=== PATIENT | male | born 1995 | race Caucasian/White ===

== ENCOUNTER 2017-07-08 17:15 | Emergency (ER) | payer SELFPAY ==
[2017-07-08 17:27] VITALS: BP 125/75; PULSE 80; RESP 18; TEMP 36.7; O2SAT 98; BMI 27.7
--- NOTE | 2017-07-08 17:44 | XR_ITS ---
XR hand RT min 3V HISTORY: Posttraumatic pain, laceration ITS.REASON: CUT HAND WITH CHAINSAW ORDERING PHYSICIAN: Diamond Simons MD PATIENT AGE: 21 years COMPARISON: None FINDINGS: There is an oblique fracture involving the distal aspect of the distal phalanx of the fourth digit. Fracture fragments are by 1 to 2 mm. There is some minimal comminution of the fracture along the ulnar aspect. No obvious radio opaque foreign body. IMPRESSION: Mildly displaced oblique fracture distal phalanx fourth digit
--- NOTE | 2017-07-08 18:20 | HMH.EDWNDL ---
ED Disposition Clinical Impression: Hand laceration Disposition: Home, Self-Care Condition on Discharge: Fair Instructions: DI for Laceration Repair Additional Instructions: 1- rest. 2- elevate. 3- daily neosprin. 4- needs thumb spicca splint . 5- cold compresses. 5- 2 days wound recehck. 6- stitche removal in 2 weeks . 7- bactrim DS po bid. Prescriptions: Sulfamethoxazole/Trimethoprim [Bactrim DS tablet] 1 each PO BID #20 tablet Referrals: Provider,MD Erasmo [Primary Care Provider] - Tylor Olivera MD [Staff Physician] - - Critical Care Critical Care Time: No Attestation: On 07/08/17, the high probability of a clinically significant, sudden or life threatening deterioration of the following system(s) required my full and direct attention, intervention and personal management. The time I documented below is in addition to time spent performing reported procedures but includes the following listed in this critical care notation. Medical Decision Making - Medical Records Medical records reviewed: Yes: I reviewed the patient's medical records. Vital Signs: 07/08/17 17:27 Temperature 98.0 F Temperature Source Oral Pulse Rate [Right Brachial] 80 Respiratory Rate 18 Blood Pressure [Right Arm] 125/75 Blood Pressure Mean [Right Arm] 91 Blood Pressure Source [Right Arm] Automatic Cuff Blood Pressure Position [Right Arm] Sitting 02 Sat by Pulse Oximetry 98 Oxygen Delivery Method Room Air Orders (Tests/Meds): ORDERS Category Date Time Status XR hand RT min 3V Routine Exams 07/08/17 17:44 Taken - Radiology Data #1 Image Reviewed: Yes I reviewed the patient's radiology image Preliminary Findings: Normal/NAD - Jerry Inquiry Pt receiving controlled substance: No Jerry was queried for this patient: No Wound/Laceration HPI - General Chief Complaint: Wound/Laceration Stated Complaint: AO 07/08/17 Rt Hand vs Chain Saw, Lac Mode of Arrival: Ambulatory Limitations: No Limitations Description of Symptoms (Recalled from ER Triage Doc. by RN): CUT RIGHT HAND WITH CHAINSAW - History of Present Illness HPI narrative: 21 years old white male was using a chainsaw to cut wood when he had a knot with a result of 4 centimeter laceration at the base of the right thumb, no loss of movement no loss of incision. Onset (ago): hour(s) Extremity Location: Right: hand (4 cm laceration the skin and subcutaneous tissue.) Place: home Patient tetanus UTD: Yes Context: accidental Associated symptoms: none - Related Data Previous Rx's Medication Instructions Recorded Sulfamethoxazole/Trimethoprim 1 each PO BID #20 tablet 07/08/17 [Bactrim DS tablet] Allergies Allergy/AdvReac Type Severity Reaction Status Date / Time No Known Allergies Allergy Unverified 06/03/17 15:29 [facility] History I have reviewed the patient's past medical history: Yes Medical History: Denies:: Cancer, Diabetes Mellitus Type 1, Diabetes Mellitus Type 2, MRSA Amputation: No - *Social History Educational Level: Completed High School Smoking Status: Unknown if ever smoked Alcohol Intake: never - Psychiatric History Expresses thoughts of harming self/others: None Suicide Plan Description: No Plan ROS Obtained: Yes All systems reviewed & no additional complaints Physical Exam - General General appearance: alert, in no apparent distress - Head Head exam: atraumatic, normocephalic, normal inspection - Eye Eye exam: Present: normal appearance, PERRL, EOMI - ENT ENT exam: Present: normal exam, normal oropharynx, mucous membranes moist, TM's normal bilaterally, normal external ear exam - Neck Neck exam: Present: normal inspection, full ROM, trachea midline. Absent: meningismus, lymphadenopathy - Chest Chest inspection: Present: normal inspection, symmetric chest wall rise. Absent: tenderness - Respiratory Respiratory exam: Present: normal lung sounds bilaterally. A
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
[2017-07-08 19:29] VITALS: BP 130/78; PULSE 60; RESP 16; TEMP 37.1; O2SAT 98
== END 2017-07-08 19:34 | disposition home or self-care (01) ==
PROVIDERS: Emergency Provider Emergency Medicine; Family Provider Internal Medicine Adolescent Medicine
DX: S61.011A Laceration without foreign body of right thumb without damage to nail, initial encounter (principal); W29.3XXA Contact with powered garden and outdoor hand tools and machinery, initial encounter; Y93.89 Activity, other specified; Y92.009 Unspecified place in unspecified non-institutional (private) residence as the place of occurrence of the external cause
CPT/HCPCS: 12002; 73130; 99282

== ENCOUNTER 2017-07-21 13:34 | Emergency (ER) | payer SELFPAY ==
[2017-07-21 13:59] VITALS: BP 121/75; PULSE 85; RESP 18; TEMP 36.7; O2SAT 98
== END 2017-07-21 13:58 | disposition home or self-care (01) ==
PROVIDERS: Emergency Provider Emergency Medicine; Family Provider Internal Medicine Adolescent Medicine
DX: Z48.02 Encounter for removal of sutures; S61.419D Laceration without foreign body of unspecified hand, subsequent encounter
CPT/HCPCS: 99203; 99281

== ENCOUNTER 2019-10-17 14:46 | Emergency (ER) | payer OTHER, SELFPAY ==
[2019-10-17 14:56] VITALS: BP 130/89; PULSE 89; RESP 18; TEMP 36.8; O2SAT 98; BMI 23.7
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
[2019-10-17 15:17] VITALS: BP 132/87; PULSE 78; RESP 16; TEMP 36.8; O2SAT 98
== END 2019-10-17 15:18 ==
PROVIDERS: Emergency Provider Family Medicine
DX: S01.81XA Laceration without foreign body of other part of head, initial encounter (principal); Y04.2XXA Assault by strike against or bumped into by another person, initial encounter; Y92.019 Unspecified place in single-family (private) house as the place of occurrence of the external cause; F12.10 Cannabis abuse, uncomplicated
CPT/HCPCS: 12011; 99283

== ENCOUNTER 2020-11-23 14:54 | Emergency (ER) | payer OTHER, SELFPAY ==
[2020-11-23 15:09] VITALS: BP 112/78; PULSE 78; RESP 17; TEMP 36.8; O2SAT 98; BMI 23.7
[2020-11-23 15:18] VITALS: BP 112/75; PULSE 78; RESP 17; TEMP 36.8; O2SAT 98
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
== END 2020-11-23 16:00 | disposition home or self-care (01) ==
LOC: UTC 16:29
PROVIDERS: Emergency Provider Nurse Practitioner Family
DX: M54.6 Pain in thoracic spine (principal); V40.0XXA Car driver injured in collision with pedestrian or animal in nontraffic accident, initial encounter; Y92.488 Other paved roadways as the place of occurrence of the external cause
CPT/HCPCS: 72072; 99202; G0463

== ENCOUNTER 2022-04-30 22:02 | Emergency (ER) | payer OTHER, SELFPAY ==
[2022-04-30 22:03] VITALS: BMI 23.7
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
[2022-04-30 22:08] VITALS: BP 152/87; PULSE 140; RESP 26; TEMP 36.9; O2SAT 94
--- NOTE | 2022-04-30 22:08 | ECG_ITS ---
APPROVED REPORT Exam: Resting ECG HR:97 bpm ECG Measurements Heart Rate 97 AXES ID 131 P 76 QRSd 89 QRS 85 QT 311 T 53 QTc 365 Conclusion SINUS RHYTHM WITH SINUS ARRHYTHMIA NORMAL ECG UNCONFIRMED REPORT Electronically signed by : Ildefonso Toth MD 05/01/2022 13:15:00
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
[2022-04-30 22:14] LABS: POC Glucose,Bedside 109 (70-110)
[2022-04-30 22:15] LABS: Basophils # 0.2 K/mm3 (0-0.2); Basophils % 0.9 % (0.1-2.0); Eosinophils # 0.2 K/mm3 (0.0-0.4); Hematocrit 46.1 % (42.0-52.0); Lymphocytes # 4.8 K/mm3 (0.7-4.5); Lymphocytes % 29.4 % (10-50); Mean Corpuscular HGB Conc 32.6 g/dL (31.8-35.4); Mean Corpuscular Hemoglobin 29.4 pg (27.0-31.2); Mean Corpuscular Volume 90.1 fl (80-94); Mean Platelet Volume 8.3 fl (7.4-10.4); Monocytes # 0.8 K/mm3 (0.1-1.0); Neutrophils # 10.4 K/mm3 (1.8-7.8); Neutrophils % 63.7 % (37.0-80.0); Platelet Count 355 K/mm3 (142-424); Red Blood Count 5.11 M/mm3 (4.60-6.20); Red Cell Distribution Width 14.2 % (11.5-17.5); White Blood Count 16.3 K/mm3 (4.8-10.8)
[2022-04-30 22:18] LABS: Chloride 101 mmol/L (98-107); Sodium 142 mmol/L (136-145)
[2022-04-30 22:19] LABS: Potassium 3.4 mmoL/L (3.5-5.1)
[2022-04-30 22:21] LABS: Alanine Aminotransferase 30 U/L (12-78); Albumin Level 4.8 g/dl (3.5-5.0); Albumin/Globulin Ratio 1.7 (1.1-1.8); Alkaline Phosphatase 59 U/L (38-126); Anion Gap 19.4 mEq/L (5-15); Aspartate Amino Transferase 32 U/L (17-59); Bilirubin,Total 0.4 mg/dl (0.2-1.3); Blood Urea Nitrogen 13 mg/dl (9-20); Carbon Dioxide 25 mmol/L (22.0-30.0); Creatinine Clearance Estimated 145 mL/min (50-200); Estimated Glomerular Filt Rate 103 ml/min (>60); GFR (African American) 124 ML/MIN (>60); Globulin 2.8 g/dL (1.3-3.2); Total Protein,Serum 7.6 g/dl (6.3-8.2)
[2022-04-30 22:22] LABS: Calcium 9.9 mg/dl (8.4-10.2); Glucose 114 mg/dl (74-100)
[2022-04-30 22:24] LABS: MANUAL DIFFERENTIAL MANUAL DIFFERENTIAL (MANUAL DIFF)
[2022-04-30 22:37] LABS: Eosinophils % 1 % (0-3); Lymphocytes % 35 % (10-50); Monocytes % 1 % (2-9); Neutrophils % 63 % (42-76); Platelet Estimate Normal; RBC Morphology Normal; Total Cells Counted 100
--- NOTE | 2022-04-30 22:54 | PC.NURSE ---
speaking with CECE
[2022-04-30 22:58] VITALS: BP 152/72; PULSE 140; RESP 26; TEMP 36.5; O2SAT 94; BMI 23.8
--- NOTE | 2022-04-30 23:00 | PC.NURSE ---
Dr. Olivera speaking with Dr. Cartagena
--- NOTE | 2022-04-30 23:00 | PC.NURSE ---
speaking with Mitzi at this time
--- NOTE | 2022-04-30 23:07 | PC.NURSE ---
Dr. Olivera speaking with Dr. Kirby
--- NOTE | 2022-04-30 23:10 | PC.NURSE ---
Pt accepted at [facility] by Dr. Kirby
--- NOTE | 2022-04-30 23:22 | PC.NURSE ---
report called to Vangie GOMEZ at ER
[2022-04-30 23:23] LABS: Coronavirus 19, PCR Not Detected (NotDetected); Influenza A, PCR Not Detected (NotDetected); Influenza B, PCR Not Detected (NotDetected)
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
--- NOTE | 2022-04-30 23:27 | PC.NURSE ---
All of pt belongings including: phone, wallet, flash light, pocket knife, household coordinator, necklace, and ear buds, placed in pt belonging bag to be transported with EMS.
[2022-04-30 23:28] VITALS: BMI 23.8
--- NOTE | 2022-04-30 23:29 | PC.NURSE ---
Per pt request friendJose Luis, updated that pt would be transferred to [facility].
[2022-04-30 23:40] VITALS: BP 148/91; PULSE 91; RESP 16; TEMP 37.1; O2SAT 100
== END 2022-05-01 | disposition short-term general hospital (02) ==
PROVIDERS: Emergency Provider Emergency Medicine
DX: S21.331A Puncture wound without foreign body of right front wall of thorax with penetration into thoracic cavity, initial encounter (principal); J94.2 Hemothorax; X99.1XXA Assault by knife, initial encounter; F12.90 Cannabis use, unspecified, uncomplicated; Z72.0 Tobacco use
CPT/HCPCS: 71045; 71275; 74177; 80053; 82962; 85007; 85025; 93005; 96365; 99285; C9803; Q9967; U0003; U0005

== ENCOUNTER 2023-01-08 01:11 | Emergency (ER) | payer OTHER, SELFPAY ==
[2023-01-08 01:15] VITALS: BP 137/85; PULSE 106; RESP 18; TEMP 36.6; O2SAT 97; BMI 23.8
--- NOTE | 2023-01-08 01:19 | HMH.EDGENADL ---
Discharge Plan Disposition Chief Complaint: Medical Clearance Referrals Follow up/Referrals: Tylor Olivera MD [Primary Care Provider] - See instructions Activity Restrictions/Add. Instructions Additional Instructions/Restrictions: Please follow-up with your primary care provider. Please return to the emergency department if you develop any new or worsening symptoms or become concerned for your health. Clinical Impressions Clinical Impression: Medical clearance for incarceration Discharge ED Provider: Dimitris Murray Adult HPI General Chief complaint: Medical Clearance Stated complaint: Medical Clearance Time Seen by Provider: 01/08/23 01:15 Mode of Arrival: Ambulatory Limitations: No Limitations Description of Symptoms (Recalled from ER Triage Doc. by RN): Patient here for medical clearance no complaints at this time. History of Present Illness HPI narrative: 27-year-old male reportedly previously healthy presents for medical clearance for half-way. Reports no current medical conditions, reports no current complaints. Patient presents to the ED due to reported recent drug use. Is alert and oriented and not intoxicated nor in withdrawal at this time. Related Data Allergies Allergy/AdvReac Type Severity Reaction Status Date / Time No Known Allergies Allergy Verified 05/06/22 13:06 [facility] Disclaimer: The information contained in this section may have been updated after the patient was seen, as this information can be updated by other users. Social History Smoking Status: Current every day smoker tobacco type: cigarettes packs per day: 1 second hand exposure: No alcohol intake: never substance use type: marijuana current occupational status: other Travel in the last 8 weeks: None ROS Obtained: Yes All systems reviewed & no additional complaints except as documented Physical Exam General General appearance: alert and in no apparent distress Head Head exam: atraumatic and normocephalic Eye Eye exam: Present normal appearance, PERRL and EOMI ENT ENT exam: Present normal oropharynx and normal external ear exam Neck Neck exam: Present normal inspection and full ROM Chest Chest inspection: Present normal inspection and symmetric chest wall rise; Absent tenderness Respiratory Respiratory exam: Present normal lung sounds bilaterally; Absent respiratory distress Cardiovascular Cardiovascular exam: Present regular rate and normal rhythm Abdominal Exam Abdominal exam: Present soft; Absent distention, tenderness or guarding Extremities Exam Extremities exam: Present normal inspection; Absent edema or joint swelling Back Exam Back exam: Present normal inspection; Absent tenderness Neurological Exam Neurological exam: Present alert and oriented X3; Absent motor sensory deficit Psychiatric Psychiatric exam: Present normal affect and normal mood Skin Skin exam: Present warm, dry and normal color Lymphatic Lymphatic Findings: no adenopathy Medical Decision Making Medical Records Medical records reviewed: Yes I reviewed the patient's medical records. Jerry Inquiry Pt receiving controlled substance: No Jerry was queried for this patient: No Vital Signs: 01/08/23 01:15 Temperature 97.9 F Temperature Source Oral Pulse Rate [Right Radial] 106 H Respiratory Rate 18 Blood Pressure [Right Arm] 137/85 Blood Pressure Mean [Right Arm] 102 Blood Pressure Source [Right Arm] Automatic Cuff Blood Pressure Position [Right Arm] Sitting 02 Sat by Pulse Oximetry 97 Oxygen Delivery Method Room Air Lab Data Lab results reviewed: Yes I reviewed the patient's lab results. Medical Decision Narrative: 27-year-old male reportedly previously healthy presents for medical clearance for half-way. Reports no current medical conditions, reports no current complaints. Patient presents to the ED due to reported recent drug use. Differential diagnosis includes b
[2023-01-08 01:23] VITALS: BP 137/82; PULSE 104; RESP 18; TEMP 36.6; O2SAT 97
== END 2023-01-08 01:26 | disposition home or self-care (01) ==
LOC: ER 01:14
PROVIDERS: Emergency Provider Emergency Medicine; PCP Emergency Medicine
DX: Z02.89 Encounter for other administrative examinations (principal); F17.210 Nicotine dependence, cigarettes, uncomplicated
CPT/HCPCS: 99281